=== PATIENT | male | born 1990 | race Caucasian/White ===

== ENCOUNTER 2024-07-26 17:38 | Emergency (ER) | payer OTHER, SELFPAY ==
[2024-07-26 17:38] VITALS: BP 156/108; PULSE 83; RESP 16; TEMP 36.7; O2SAT 95; BMI 27.0
--- NOTE | 2024-07-26 18:18 | EDS_ITS ---
HPI History of Present Illness Chief Complaint: Upper Extremity Injury PFS PFS Medical History no medical history Home Medications ?Medication ?Instructions ?Recorded ?Last Taken ?Type NK 07/26/24 Unknown History Allergy/AdvReac Type Severity Reaction Status Date / Time No Known Allergies Allergy Verified 12/26/16 19:55 Surgical History no surgical history Social History Smoking Status: Never smoker EXAM Physical Exam Const Vital Signs: 07/26/24 17:38 Temperature 98.0 F Temperature Source Oral Pulse Rate 83 Respiratory Rate 16 Blood Pressure 156/108 H Blood Pressure Mean 124 Pulse Ox 95 Oxygen Delivery Method Room Air [facility] [place] Narrative Medical decision making narrative: HISTORY OF PRESENT ILLNESS: 33-year-old male presents with left shoulder pain. He notes pain through his left shoulder blade that is described as pulsating. He noted on he had approxi-1/2-hour episode of chest pain and dizziness denies any chest pain since. He notes pulsating and is intermittent in his left trapezius muscle/left chest. Denies ripping or tearing pain. No recent injury. Denies chest pressure. Denies exertional component. Denies any shortness of breath. Denies recent cough fever chills. Denies any bleeding diathesis The patient denies recent surgery in the last 4 weeks or immobilization in the last 3 days, denies previous diagnosis of DVT or PE, hemoptysis, unilateral leg swelling or malignancy with treatment the last 6 months or palliative. No estrogen use noted. Patient denies sudden onset of pain, no tearing sensation, no migratory symptoms, no new numbness, weakness or loss of sensation. Patient denies family history or personal history of Connective tissue disorders (Marfan's Syndrome, Jamel Danlos etc) REVIEW OF SYSTEMS: Pertinent positives: Chest pain, left shoulder pain Pertinent negatives: Vomiting, leg swelling PHYSICAL EXAM: Nursing triage notes reviewed, Vital signs reviewed Constitutional: please see mdm HENT: MMM Eyes: Pupils equal round and reactive to light, Extraocular muscles intact Neck: No stridor, no JVD, full neck ROM Lungs: Clear to auscultation, No wheezing or rales. No increased work of breathing, no conversational dyspnea, no accessory muscle use, no nasal flaring. No respiratory distress noted Heart: Regular rate and rhythm, No murmurs, No rubs and No gallops, 2+ distal pulses (radial, femoral, posterior tibial) in all extremities Abdomen: Soft, there is no tenderness, rigidity, rebound or guarding, no obvious peritoneal signs, no palpable pulsatile abdominal masses, no auscultated abdominal bruit : No CVAT Extremities: No edema Neuro: No new focal neurological deficits, cranial nerves II through XII intact, 5/5 strength in all present extremities. Intact sensation to light touch in all present extremities, 2+ reflexes bilateral patella tendons. Skin: No rash or lesions noted MEDICAL DECISION MAKING: Chief Complaint: Chest pain, left shoulder External records reviewed: Reviewed prior cardiovascular test Factors affecting care: none Social determinants of health: none History obtained from others: none Consults: none MDM Narrative: Patient was initially hemodynamically stable, afebrile and nontoxic-appearing. Exam without focal deficits. No pulse deficits no carotid bruits intact shoulder range of motion. No step-offs deformities I considered the following differential diagnosis: Shoulder fracture dislocation, heart failure, pneumothorax, Arrhythmia, anemia, electrolyte disturbance, PE, aortic dissection Consider pulmonary embolism the patient low risk Wells score and as such have a low suspicion for PE. While I considered obtaining a CTA of the chest I thought this was not indicated at this time given the patient's low risk of PE. I also considered aortic dissection as potential etiology given the patient's report of pulsating pain. However he had symmetric pulses, and symmetric neurologic exam. No family present history of connective tissue diseases. His history and physical exam were not consistent with aortic dissection. ALL IMAGES (IF OBTAINED) HAVE BEEN PERSONALLY REVIEWED AND INTERPRETED BY MYSELF. EKG with normal sinus rhythm, right axis deviation, no intervals, no STEMI, Triage EKG obtained secondary to poor department of dynamics including high volume and high acuity. After I evaluated the patient I added on BMP, troponin x 2, CBC, chest x-ray, shoulder x-ray to further assess the patient's symptoms. High-sensitivity troponin is negative, no evidence of myocardial ischemiax2 CBC with leukocytosis suggestive of systemic admission, elevated hemoglobin suggesting hemoconcentration but no anemia or thrombocytopenia BMP without evidence of significant electrolyte abnormalities, no anion gap, no acute kidney injury. I have personally reviewed the patient's chest x-ray. Chest x-ray is unremarkable for pulmonary edema, pneumothorax, pneumonia or focal cardiopulmonary abnormality. X-ray of the left shoulder was read reviewed person myself show no evidence of obvious bony abnormality The etiology appears complaint remains unclear but unlikely be life-threatening. Patient has a low heart score. 2 negative troponin biomarkers. ACS is ruled out by [facility] high-sensitivity troponin protocol. He is appropriate for discharge home with close outpatient follow-up. Strict return precautions were discussed. I completed a HEART Score to screen for Major Adverse Cardiac Event (MACE) in this patient. The evidence indicates that the patient is very low risk for MACE and this is consistent with my clinical intuition. The risk of further workup or hospitalization for MACE is likely higher than the risk of the patient having a MACE. It is, therefore, in the patient?s best interest not to do additional emergent testing or to be hospitalized for MACE at this time. Shared Decision-Making No hospitalization indicated I have discussed with the patient my clinical impression and the result of the HEART Score to screen for MACE, as well as the risks of further testing and hospitalization. The HEART Score shows that the risk for MACE is less than 1%. Although the risk of MACE has not been completely eliminated, the risks of fu rther testing or hospitalization for MACE likely exceed any potential benefit, and the patient agrees with not pursuing further emergent evaluation or hospitalization for MACE at this time. The patient and/or family, caregivers express understanding. The patient and/or family, caregivers agrees with the plan. Total critical care time today provided was at least 0 minutes. This excludes separately billable procedures. Critical care time (if documented) is secondary to the patient having high probability of clinically significant/life threatening deterioration in the patient's condition which required my urgent intervention. Impression: 1. Chest discomfort 2. Left shoulder pain Dispo: Discharge home This note was generated with apstrata dictation software. It may contain incorrect words, spelling, and punctuation that were not noted in review of the chart prior to signing. Discharge Plan Triage Chief Complaint: Upper Extremity Injury ED Provider: Tr Carlton Dx/Rx/DC Orders Instructions: Chest Pain [facility] Ch Prescriptions: No Action NK Primary Care Provider: Care Physician,No Primary Referrals: Ck Beard MD [Med Staff - Active Staff] - Activity Restrictions/Additional Instructions: Thank you for trusting us with your care today! Your labs images were unremarkable for signs of damage to your heart or signs of anatomical abnormalities in your chest or shoulder. Please take Tylenol (2 pills, 650 mg), ibuprofen (2 pills, 400 mg) every 6 hours as needed for pain and fever control. Please return to the emergency department if your symptoms change or worsen. Please follow with your primary care physician for further outpatient evaluation and management. Print Language: Scottish Disposition Disposition: Home, Self Care Discharge Date/Time: 07/26/24 22:48
--- NOTE | 2024-07-26 18:48 | RAD_ITS ---
EXAM: XR CHEST, 1 VIEW CLINICAL INDICATION: chest pain TECHNIQUE: Frontal view of the chest. COMPARISON: No relevant prior studies available. FINDINGS: LUNGS AND PLEURAL SPACES: Unremarkable. No consolidation or edema. No pneumothorax. No effusion. HEART: Unremarkable. Cardiac silhouette not enlarged. MEDIASTINUM: Central airways and mediastinal contour are unremarkable. BONES/JOINTS: Unremarkable. No acute fracture. SOFT TISSUES: Unremarkable. RAD/Chest 1 View (Portable) IMPRESSION: No radiographic evidence of acute cardiopulmonary disease. Electronically Signed: Po Nunez MD at 19:54 EST ,
--- NOTE | 2024-07-26 18:48 | EKG12_ITS ---
Test Reason : CP Blood Pressure : */* mmHG Vent. Rate : 92 BPM Atrial Rate : 92 BPM P-R Int : 120 ms QRS Dur : 88 ms QT Int : 346 ms P-R-T Axes : 84 92 72 degrees QTcB Int : 427 ms Normal sinus rhythm Rightward axis Borderline ECG Confirmed by MARISOL MCKEON, CHIOMA ([id number]), state editor ILDEFONSO CISNEROS ([id number]) on 07/28/2024 6:21:50 AM Referred By: [facility]YS Confirmed By: CHIOMA DAMON MD
--- NOTE | 2024-07-26 18:50 | ED.RN ---
no old ekg
--- NOTE | 2024-07-26 19:10 | RAD_ITS ---
EXAM: XR LEFT SHOULDER COMPLETE, 2 OR MORE VIEWS CLINICAL INDICATION: pain TECHNIQUE: Two or more views of the left shoulder. COMPARISON: No relevant prior studies available. FINDINGS: BONES/JOINTS: Unremarkable. No acute fracture. No subluxation. Normal alignment. Preservation of the joint space. No sclerotic or destructive changes observed. SOFT TISSUES: Unremarkable. No soft tissue swelling or gas. No radiopaque foreign body. RAD/Shoulder min 2 Views IMPRESSION: Negative left shoulder x-rays. Electronically Signed: Po Nunez MD at 19:54 EST ,
[2024-07-26 19:18] LABS: Absolute Lymphocyte Count 3.03 X10^3/uL (0.83-4.51); Absolute Neutrophil Count 9.9 X10^3/uL (2.0-7.7); Basophil# 0.18 X10^3/uL; Basophil% 1.1 % (0-1); Eosinophil# 1.98 X10^3/uL; Eosinophils% 11.9 % (0-5); Hemoglobin 17.4 g/dL (13.0-16.5); Lymphocyte # 3.03 X10^3/ul (0.83-4.51); Lymphocyte % 18.1 % (19-41); Mean Corp Hgb Conc 34.8 g/dL (32-36); Mean Corpuscular Hgb 31.8 pg (27.0-32.0); Mean Corpuscular Volume 91.4 fL (80-94); Mean Platelet Vol. 10.1 fl (6.2-12.0); Monocyte# 1.49 X10^3/uL; Monocyte% 8.9 % (0-10); NRBC Flagged by Analyzer 0 % (0-5); Neutrophil # 9.94 X10^3/uL (2.7-7.7); Neutrophil % 59.5 % (47-70); Platelet Count 366 K/mm3 (150-450); RBC Distribution Width CV 11.4 % (11.6-14.6); RBC Distribution Width SD 38.5 fl (35.1-43.9); Red Blood Count 5.47 M/mm3 (4.6-6.2); White Blood Count 16.7 K/mm3 (4.4-11.0)
[2024-07-26 19:25] LABS: Anion Gap 6 (5-15); BUN 10 mg/dL (7-18); BUN/Creat Ratio 11.1 RATIO (10-20); Calcium,Total 9.6 mg/dL (8.5-10.1); Chloride 104 mmol/L (98-107); EST Glomerular Filtration Rate 104 mL/min (>60); Est Glom Filt Rate - Afr Amer 126 mL/min (>60); Glucose 92 mg/dL (74-106); Potassium 3.5 mmol/L (3.5-5.1); Sodium Level 138 mmol/L (136-145); Troponin-I HS (w/2H Reflex) 4 pg/mL (3.0-78.0)
[2024-07-26 19:38] VITALS: BP 114/81; PULSE 97; RESP 19; O2SAT 97
[2024-07-26 20:59] LABS: Reflex Troponin-HS? (from REC) Y
[2024-07-26 21:00] VITALS: BP 117/77; PULSE 61; RESP 21; O2SAT 95
[2024-07-26 21:17] LABS: Troponin-I HS 5 pg/mL (3.0-78.0)
[2024-07-26 22:47] VITALS: BP 113/78; PULSE 72; RESP 23; TEMP 36.5; O2SAT 98
== END 2024-07-26 22:48 | disposition home or self-care (01) ==
PROVIDERS: Emergency Provider Emergency Medicine; Visit Provider Emergency Medicine
DX: R07.89 Other chest pain (principal); M25.512 Pain in left shoulder
CPT/HCPCS: 71045; 73030; 80048; 84484; 85025; 93005; 99284; A4216